=== PATIENT | male | born 1970 | race Caucasian/White ===

== ENCOUNTER 2025-06-06 10:39 | Inpatient (IN) ==
[2025-06-06] MEDS ORDERED: VANCOMYCIN 1,500 MG in 0.9 % SODIUM CHLORIDE 500 ML IV ONE (11:04)
[2025-06-06] MEDS: fentaNYL 100 MCG/2 ML VIAL IV ONE (11:15)
[2025-06-06] MEDS: VANCOMYCIN 1,000 MG in 0.9 % SODIUM CHLORIDE 250 ML IV ONE (11:31)
[2025-06-06 11:58] LABS: Basophils # (Auto) 0.08 K/mcL (0.00-0.30); Basophils % (Auto) 0.5 % (0.0-2.0); Eosinophils # (Auto) 0.42 K/mcL (0.00-0.70); Eosinophils % (Auto) 2.8 % (0.0-7.0); Hematocrit 39.5 % (40.1-51.0); Hemoglobin 13.5 g/dL (13.7-17.5); Lymphocytes # (Auto) 1.36 K/mcL (1.50-4.80); Lymphocytes % (Auto) 9.2 % (15.5-49.0); Mean Corpuscular HGB Conc 34.2 g/dL (31.0-36.0); Monocytes # (Auto) 1.05 K/mcL (0.10-0.90); Monocytes % (Auto) 7.1 % (1.0-12.0); Neutrophils % (Auto) 78.7 % (38.0-78.0); Platelet Count 434 K/mcL (140-440); RBC 4.11 M/mcL (4.63-6.08); WBC 14.8 K/mcL (4.5-11.0)
[2025-06-06 12:07] LABS: ALT/SGPT 34 U/L (<40); AST/SGOT 33 U/L (<40); Albumin 3.0 gm/dL (3.2-5.2); Albumin/Globulin Ratio 0.9 (1.0-2.3); Alkaline Phosphatase 142 U/L (39-117); Anion Gap 15.0 (8.0-16.0); Bilirubin,Total 0.3 mg/dL (0.1-1.0); Blood Urea Nitrogen 5 mg/dL (6-20); Calcium 8.8 mg/dL (8.6-10.4); Carbon Dioxide 23 mmol/L (22-30); Chloride 99 mmol/L (96-108); Globulin 3.2 gm/dL (2.2-3.7); Glucose 82 mg/dL (70-105); Potassium 2.7 mmol/L (3.3-5.1); Sodium 137 mmol/L (133-145)
[2025-06-06] MEDS: 0.9 % SODIUM CHLORIDE 1,000 ML IV ONE ×2 (12:12→13:43)
[2025-06-06] MEDS: POTASSIUM CHLORIDE 20 MEQ TABLET PO ONE ×3 (12:32→18:30)
[2025-06-06] MEDS: POTASSIUM CHLORIDE 10 MEQ/100 ML BAG IV SCH (12:44)
[2025-06-06] MEDS: WATER IV ONE (13:52)
[2025-06-06] MEDS: DEXTROSE 5% IV ONE (13:52)
[2025-06-06] MEDS: POTASSIUM CHLORIDE IV ONE (13:52)
[2025-06-06] MEDS ORDERED: NICOTINE POLACRILEX 2 MG GUM CHEW/PARK PRN (15:21)
[2025-06-06] MEDS ORDERED: KETOROLAC 30 MG/ML VIAL IV PRN (15:21)
[2025-06-06] MEDS ORDERED: VANCOMYCIN PER PHARMACY IV SCH (15:21)
[2025-06-06] MEDS ORDERED: ONDANSETRON 4 MG/2 ML VIAL IV PRN (15:21)
[2025-06-06] MEDS: ENOXAPARIN 40 MG/0.4 ML SYRINGE SQ SCH (16:13)
[2025-06-06] MEDS: NICOTINE 21 MG PATCH TOPICAL SCH (16:13)
[2025-06-06] MEDS: 0.9 % SODIUM CHLORIDE 1,000 ML IV SCH (16:13)
[2025-06-06 16:47] LABS: Potassium 3.4 mmol/L (3.3-5.1)
[2025-06-06] MEDS: cefTRIAXone 2 GM in DEXTROSE 5% IN WATER 50 ML IV SCH (17:09)
[2025-06-06] MEDS: KETOROLAC 15 MG/ML VIAL IV PRN (17:09)
[2025-06-06] MEDS: ACETAMINOPHEN 325 MG TABLET PO PRN (19:27)
[2025-06-06] MEDS ORDERED: SENNOSIDES 1 TABLET PO PRN (21:00)
[2025-06-06] MEDS: VANCOMYCIN 1,500 MG in 0.9 % SODIUM CHLORIDE 500 ML IV ONE (21:12)
[2025-06-06] MEDS: 0.9 % SODIUM CHLORIDE 10 ML SYRINGE IV SCH (21:15)
[2025-06-07 05:56] LABS: Basophils # (Auto) 0.07 K/mcL (0.00-0.30); Basophils % (Auto) 0.6 % (0.0-2.0); Eosinophils # (Auto) 0.39 K/mcL (0.00-0.70); Eosinophils % (Auto) 3.2 % (0.0-7.0); Hematocrit 34.3 % (40.1-51.0); Hemoglobin 11.4 g/dL (13.7-17.5); Lymphocytes # (Auto) 1.59 K/mcL (1.50-4.80); Lymphocytes % (Auto) 13.2 % (15.5-49.0); Mean Corpuscular HGB Conc 33.2 g/dL (31.0-36.0); Monocytes # (Auto) 0.83 K/mcL (0.10-0.90); Monocytes % (Auto) 6.9 % (1.0-12.0); Neutrophils % (Auto) 74.2 % (38.0-78.0); Platelet Count 414 K/mcL (140-440); RBC 3.45 M/mcL (4.63-6.08); WBC 12.0 K/mcL (4.5-11.0)
[2025-06-07 06:17] LABS: ALT/SGPT 27 U/L (<40); AST/SGOT 24 U/L (<40); Albumin 2.5 gm/dL (3.2-5.2); Albumin/Globulin Ratio 1.0 (1.0-2.3); Alkaline Phosphatase 113 U/L (39-117); Anion Gap 9.0 (8.0-16.0); Bilirubin,Direct < 0.2 mg/dL (0-0.3); Bilirubin,Total < 0.2 mg/dL (0.1-1.0); Blood Urea Nitrogen 6 mg/dL (6-20); Calcium 8.2 mg/dL (8.6-10.4); Carbon Dioxide 23 mmol/L (22-30); Chloride 107 mmol/L (96-108); Globulin 2.6 gm/dL (2.2-3.7); Glucose 94 mg/dL (70-105); Phosphorous 2.6 mg/dL (2.5-4.5); Potassium 3.4 mmol/L (3.3-5.1); Sodium 139 mmol/L (133-145); Triglycerides 70 mg/dL (<150); Uric Acid 2.8 mg/dL (2.5-8.0)
[2025-06-07] MEDS: VANCOMYCIN 1,250 MG in 0.9 % SODIUM CHLORIDE 500 ML IV SCH (08:51)
[2025-06-07] MEDS ORDERED: VANCOMYCIN 1,500 MG in 0.9 % SODIUM CHLORIDE 500 ML IV SCH (09:00)
[2025-06-07] MEDS ORDERED: GADOBENATE DIMEGLUMINE 15 ML/VIAL IV ONE (11:14)
[2025-06-07] MEDS ORDERED: IOPAMIDOL 100 ML BOTTLE IV ONE (11:35)
[2025-06-07] MEDS: CYCLOBENZAPRINE 10 MG TABLET PO PRN (12:23)
[2025-06-07] MEDS: metroNIDAZOLE 500 MG/100 ML BAG IV SCH (12:59)
[2025-06-08 08:38] LABS: Basophils # (Auto) 0.05 K/mcL (0.00-0.30); Basophils % (Auto) 0.4 % (0.0-2.0); Eosinophils # (Auto) 0.32 K/mcL (0.00-0.70); Eosinophils % (Auto) 2.6 % (0.0-7.0); Hematocrit 40.0 % (40.1-51.0); Hemoglobin 13.5 g/dL (13.7-17.5); Lymphocytes # (Auto) 1.29 K/mcL (1.50-4.80); Lymphocytes % (Auto) 10.3 % (15.5-49.0); Mean Corpuscular HGB Conc 33.8 g/dL (31.0-36.0); Monocytes # (Auto) 0.82 K/mcL (0.10-0.90); Monocytes % (Auto) 6.6 % (1.0-12.0); Neutrophils % (Auto) 77.8 % (38.0-78.0); Platelet Count 554 K/mcL (140-440); RBC 4.10 M/mcL (4.63-6.08); WBC 12.5 K/mcL (4.5-11.0)
[2025-06-08 09:00] LABS: C-Reactive Protein 4.12 mg/dL (0.03-0.80)
[2025-06-08 09:03] LABS: ALT/SGPT 29 U/L (<40); AST/SGOT 23 U/L (<40); Albumin 3.0 gm/dL (3.2-5.2); Albumin/Globulin Ratio 0.9 (1.0-2.3); Alkaline Phosphatase 116 U/L (39-117); Anion Gap 12.0 (8.0-16.0); Bilirubin,Direct < 0.2 mg/dL (0-0.3); Bilirubin,Total 0.2 mg/dL (0.1-1.0); Blood Urea Nitrogen 7 mg/dL (6-20); Calcium 9.3 mg/dL (8.6-10.4); Carbon Dioxide 27 mmol/L (22-30); Chloride 99 mmol/L (96-108); Globulin 3.3 gm/dL (2.2-3.7); Glucose 101 mg/dL (70-105); Phosphorous 4.4 mg/dL (2.5-4.5); Potassium 3.9 mmol/L (3.3-5.1); Sodium 138 mmol/L (133-145); Triglycerides 132 mg/dL (<150); Uric Acid 2.5 mg/dL (2.5-8.0)
[2025-06-08] MEDS: LISINOPRIL 20 MG TABLET PO SCH (11:25)
[2025-06-08] MEDS: ENALAPRILAT 1.25 MG/ML VIAL IV ONE (19:06)
[2025-06-08] MEDS: BUTALB/ACETAMINOPHEN/CAFFEINE 1 TABLET PO PRN (21:40)
[2025-06-08] MEDS: HYDROCHLOROTHIAZIDE 25 MG TABLET PO SCH (21:41)
[2025-06-08] MEDS: HYDROmorphone 0.5 MG/0.5 ML SYRINGE IV PRN (22:24)
[2025-06-09 07:15] LABS: Basophils # (Auto) 0.13 K/mcL (0.00-0.30); Basophils % (Auto) 1.2 % (0.0-2.0); Eosinophils # (Auto) 0.40 K/mcL (0.00-0.70); Eosinophils % (Auto) 3.7 % (0.0-7.0); Hematocrit 41.7 % (40.1-51.0); Hemoglobin 14.3 g/dL (13.7-17.5); Lymphocytes # (Auto) 1.24 K/mcL (1.50-4.80); Lymphocytes % (Auto) 11.5 % (15.5-49.0); Mean Corpuscular HGB Conc 34.3 g/dL (31.0-36.0); Monocytes # (Auto) 0.88 K/mcL (0.10-0.90); Monocytes % (Auto) 8.2 % (1.0-12.0); Neutrophils % (Auto) 71.2 % (38.0-78.0); Platelet Count 572 K/mcL (140-440); RBC 4.34 M/mcL (4.63-6.08); WBC 10.8 K/mcL (4.5-11.0)
[2025-06-09 07:37] LABS: ALT/SGPT 37 U/L (<40); AST/SGOT 37 U/L (<40); Albumin 3.1 gm/dL (3.2-5.2); Albumin/Globulin Ratio 0.9 (1.0-2.3); Alkaline Phosphatase 124 U/L (39-117); Anion Gap 12.0 (8.0-16.0); Bilirubin,Direct < 0.2 mg/dL (0-0.3); Bilirubin,Total < 0.2 mg/dL (0.1-1.0); Blood Urea Nitrogen 9 mg/dL (6-20); Calcium 9.4 mg/dL (8.6-10.4); Carbon Dioxide 23 mmol/L (22-30); Chloride 100 mmol/L (96-108); Globulin 3.3 gm/dL (2.2-3.7); Glucose 98 mg/dL (70-105); Phosphorous 5.3 mg/dL (2.5-4.5); Potassium 4.4 mmol/L (3.3-5.1); Sodium 135 mmol/L (133-145); Triglycerides 132 mg/dL (<150); Uric Acid 3.0 mg/dL (2.5-8.0)
[2025-06-09 12:37] VITALS: TEMP 98.1; O2SAT 100
== END 2025-06-09 12:57 | disposition home or self-care (01) | DRG 603 ==
LOC: ED 10:39 → MEDSUR 15:12
PROVIDERS: ADMIT Internal Medicine; ATTEND Internal Medicine